=== PATIENT | male | born 1995 | race Caucasian/White ===

== ENCOUNTER 2017-07-24 18:15 | Emergency (ER) | payer BC, OTHER ==
[2017-07-24 19:19] VITALS: BP 151/90
--- NOTE | 2017-07-24 19:26 | EDM.PDOC ---
ED HPI GENERAL MEDICAL PROBLEM - General Chief Complaint: ENT Problem Stated Complaint: ABSESS TOOTH Time Seen by Provider: 07/24/17 19:10 Source of Information: Reports: Patient History Limitations: Reports: No Limitations - History of Present Illness INITIAL COMMENTS - FREE TEXT/NARRATIVE: 21 yo male here with dental pain. Was seen in a local dentist's office last Tuesday and was given amoxicillin tid and told to return in a mos. Is still taking the amox, but now is getting R sided facial swelling and his pain is increasing. Not getting relief with Aleve 2 bid. No fever. The dentist plans on doing a root canal on him at some point. Has no family doctor. Onset: Gradual Onset Date: 07/15/17 Duration: Day(s):, Getting Worse Location: Reports: Face (R upper lateral incisor) Quality: Reports: Ache Severity: Moderate Improves with: Reports: None Worsens with: Reports: Other (time) Context: Reports: Other (Bad teeth from drinking lots of soda pop) Associated Symptoms: Reports: No Other Symptoms. 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 dose) Left Upper Tooth/Teeth Pain Score (Numeric/FACES): 10 - Related Data Allergies Allergy/AdvReac Type Severity Reaction Status Date / Time No Known Allergies Allergy Verified 07/24/17 19:07 Home Meds: Home Meds *Amoxicillin 07/24/17 [History] Past Medical History Genitourinary History: Reports: Renal Calculus Musculoskeletal History: Reports: Fracture - Infectious Disease History Infectious Disease History: Reports: Chicken Pox - Past Surgical History Other Musculoskeletal Surgeries/Procedures:: R ANKLE REPAIR Social & Family History - Tobacco Use Smoking Status *Q: Unknown Ever Smoked - Caffeine Use Caffeine Use: Reports: Soda - Recreational Drug Use Recreational Drug Use: No ED ROS ENT - Review of Systems Review Of Systems: See Below Constitutional: Reports: No Symptoms HEENT: Reports: Dental Pain, Other (R side of face slightly swollen). Denies: Rhinitis, Throat Pain, Throat Swelling Respiratory: Reports: No Symptoms Cardiovascular: Reports: No Symptoms GI/Abdominal: Reports: No Symptoms Skin: Reports: No Symptoms Neurological: Reports: No Symptoms ED EXAM, ENT - Physical Exam Exam: See Below Exam Limited By: No Limitations General Appearance: Alert, WD/WN, No Apparent Distress Eye Exam: Bilateral Eye: Normal Inspection Ears: Normal External Exam, Normal Canal, Hearing Grossly Normal, Normal TMs Nose: Normal Inspection, Normal Mucousa, No Blood Mouth/Throat: Normal Lips, Normal Oropharynx, Dental Abcess, Dental Pain, Gum Swelling, Other (Extensive dental decay). No: Hoarse Voice, Lip Swelling, Lip Ulcers, Muffled Voice, Oral Ulcers, Pharyngeal Erythema, Teething, Throat Pain, Throat Swelling, Tongue Swelling Head: Atraumatic, Normocephalic, Facial Swelling (subtle R sided facial swelling.) Neck: Normal Inspection, Supple, Non-Tender, Full Range of Motion Respiratory/Chest: No Respiratory Distress, Lungs Clear, Normal Breath Sounds, No Accessory Muscle Use Cardiovascular: Regular Rate, Rhythm Extremities: Normal Inspection, Normal Range of Motion, Non-Tender, No Pedal Edema Neurological: Alert, Oriented, CN II-XII Intact, Normal Cognition, No Motor/ Sensory Deficits Psychiatric: Normal Affect, Normal Mood Skin: Warm, Dry, Intact, Normal Color, No Rash Lymphatic: No Adenopathy Course - Vital Signs Last Recorded V/S: Last Vital Signs Temp 37.0 C 07/24/17 19:17 Pulse 96 07/24/17 19:17 Resp 14 07/24/17 19:17 BP 151/90 H 07/24/17 19:17 Pulse Ox 96 07/24/17 19:17 Departure - Departure Time of Disposition: 19:30 Disposition: Home, Self-Care 01 Condition: Fair Clinical Impression: Dental caries extending into dentin, Dental abscess - Discharge Information Referrals: PCP,None [Primary Care Provider] -
== END 2017-07-24 19:40 | disposition home or self-care (01) ==
LOC: JP.ED 18:15
DX: K04.7 Periapical abscess without sinus (principal); K02.9 Dental caries, unspecified
CPT/HCPCS: 99283

== ENCOUNTER 2019-04-04 21:19 | Emergency (ER) | payer OTHER ==
[2019-04-04 21:33] VITALS: BP 144/103; PULSE 64
[2019-04-04] MEDS ORDERED: Ketorolac 60 MG/2 ML SDV IM ONE (21:49)
--- NOTE | 2019-04-04 21:55 | EDM.PDOC ---
ED HPI GENERAL MEDICAL PROBLEM - General Chief Complaint: ENT Problem Stated Complaint: TOOTH ACHE Time Seen by Provider: 04/04/19 21:40 Source of Information: Reports: Patient History Limitations: Reports: No Limitations - History of Present Illness INITIAL COMMENTS - FREE TEXT/NARRATIVE: 23-year-old male with left upper dental pain. He had a lower left molar removed today, that seems to be doing okay but is having more pain in the upper jaw radiating into the left denominational. He's taken Tylenol with Codeine and amoxicillin , he is not taking an anti-inflammatory. He is going to call the dentist tomorrow to let him know he is still having trouble. Onset: Unknown/Unsure Associated Symptoms: Reports: Headaches, Malaise. Denies: Fever/Chills, Shortness of Breath Left Upper Tooth/Teeth Pain Score (Numeric/FACES): 7 - Related Data Allergies Allergy/AdvReac Type Severity Reaction Status Date / Time No Known Allergies Allergy Verified 04/04/19 21:35 Home Meds: Home Meds Acetaminophen with Codeine [Tylenol with Codeine #3 Tablet] 1 each PO Q4H [History] Amoxicillin 1 tab PO TID 04/04/19 [History] Past Medical History Genitourinary History: Reports: Renal Calculus Musculoskeletal History: Reports: Fracture, Other (See Below) Other Musculoskeletal History: fx r ankle - Infectious Disease History Infectious Disease History: Reports: Chicken Pox - Past Surgical History Other Musculoskeletal Surgeries/Procedures:: R ANKLE REPAIR Social & Family History - Tobacco Use Smoking Status *Q: Current Every Day Smoker Years of Tobacco use: 4 Packs/Tins Daily: 1 Used Tobacco, but Quit: No Second Hand Smoke Exposure: Yes - Caffeine Use Caffeine Use: Reports: Soda - Alcohol Use Days Per Week of Alcohol Use: 3 Number of Drinks Per Day: 4 Total Drinks Per Week: 12 - Recreational Drug Use Recreational Drug Use: No ED ROS ENT - Review of Systems Review Of Systems: See Below Constitutional: Reports: Malaise. Denies: Fever, Chills HEENT: Reports: Ear Pain (Pain is radiating into the left ear) Respiratory: Denies: Shortness of Breath Cardiovascular: Denies: Chest Pain GI/Abdominal: Denies: Nausea, Vomiting Skin: Denies: Erythema Neurological: Reports: Headache ED EXAM, ENT - Physical Exam Exam: See Below Exam Limited By: No Limitations General Appearance: Alert, No Apparent Distress (Patient is uncomfortable but not distressed) Ears: Normal TMs Mouth/Throat: Other (Extraction site of the left mandibular molar looks good, advanced dental decay is present in the upper molars and they are tender to percussion) Course - Vital Signs Last Recorded V/S: Last Vital Signs Temp 95.7 F 04/04/19 21:41 Pulse 64 04/04/19 21:41 Resp 12 04/04/19 21:41 BP 144/103 H 04/04/19 21:41 Pulse Ox 98 04/04/19 21:41 - Orders/Labs/Meds Meds: Medications Discontinued Medications Generic Name Dose Route Start Last Admin Trade Name Connie PRN Reason Stop Dose Admin Ketorolac Tromethamine 60 mg 04/04/19 21:49 04/04/19 22:00 Toradol IM 04/04/19 21:50 60 mg ONETIME ONE Administration - Re-Assessments/Exams Free Text/Narrative Re-Assessment/Exam: 04/04/19 21:53 Patient already is on amoxicillin for the past 24 hours, and is taking Tylenol 3 for pain. He was given 60 mg of IM Toradol and 20 additional doses to take one every 6 hours and we'll contact the dentist in the next 24-48 hours for further evaluation. He will take the ketorolac along with the Tylenol No. 3 and amoxicillin. Departure - Departure Time of Disposition: 22:21 Disposition: Home, Self-Care 01 Condition: Good Clinical Impression: Pain due to dental caries, Dental abscess - Discharge Information Instructions: Dental Abscess Referrals: PCP,None [Primary Care Provider] - Forms: ED Department Discharge Care Plan Goals: Continue your Tylenol with Codeine for pain, continue the antibiotic and take 1 ketorolac every 6 hours for the next several days if needed. Contact your dentist if symptoms aren't improving.
== END 2019-04-04 22:21 | disposition home or self-care (01) ==
LOC: JP.ED 21:19
DX: K04.7 Periapical abscess without sinus (principal); K02.9 Dental caries, unspecified; F17.210 Nicotine dependence, cigarettes, uncomplicated
CPT/HCPCS: 96372; 99283; J1885

== ENCOUNTER 2020-03-31 13:40 | Emergency (ER) | payer SELFPAY ==
[2020-03-31 14:05] VITALS: BP 148/88; PULSE 77
[2020-03-31] MEDS ORDERED: Bacitracin Oint 1 GM U/D Packet TOP ONE (14:24)
[2020-03-31] MEDS ORDERED: Lidocaine 1% with EPINEPHrine 1:100,000 50 ML MDV INFILT ONE (14:24)
--- NOTE | 2020-03-31 14:50 | EDM.PDOC ---
ED HPI GENERAL MEDICAL PROBLEM - General Chief Complaint: Laceration Stated Complaint: CUT RIGHT KNEE Time Seen by Provider: 03/31/20 14:04 Source of Information: Reports: Patient History Limitations: Reports: No Limitations - History of Present Illness INITIAL COMMENTS - FREE TEXT/NARRATIVE: 24 yo male presents to ER with laceration to right knee. He was cutting with a sawsall and slipped bouncing blade off knee. cutting through pants. able to ambulate without difficulty. up to date on tetanus Right Knee Pain Score (Numeric/FACES): 2 - Related Data Allergies Allergy/AdvReac Type Severity Reaction Status Date / Time No Known Allergies Allergy Verified 03/31/20 14:11 Home Meds: Home Meds NK [No Known Home Meds] 03/31/20 [History] Past Medical History Genitourinary History: Reports: Renal Calculus Musculoskeletal History: Reports: Fracture, Other (See Below) Other Musculoskeletal History: fx r ankle - Infectious Disease History Infectious Disease History: Reports: Chicken Pox - Past Surgical History Other Musculoskeletal Surgeries/Procedures:: R ANKLE REPAIR Social & Family History - Tobacco Use Smoking Status *Q: Current Every Day Smoker Years of Tobacco use: 6 Packs/Tins Daily: 1 Used Tobacco, but Quit: No Second Hand Smoke Exposure: Yes - Caffeine Use Caffeine Use: Reports: Soda - Alcohol Use Days Per Week of Alcohol Use: 2 Number of Drinks Per Day: 3 Total Drinks Per Week: 6 - Recreational Drug Use Recreational Drug Use: No ED ROS GENERAL - Review of Systems Review Of Systems: See Below Constitutional: Denies: Fever, Chills Respiratory: Denies: Shortness of Breath, Wheezing Cardiovascular: Denies: Chest Pain ED EXAM, SKIN/RASH Exam: See Below Text/Narrative:: exam limited to right knee General Appearance: Alert, WD/WN, No Apparent Distress Respiratory/Chest: No Respiratory Distress Skin: Warm, Dry, Intact, Wound/Incision Location, Skin: Lower Extremity, Right Characteristics: Other (1.75 cm laceration at knee, CMS surrounding injury intact.) ED SKIN PROCEDURES - Laceration/Wound Repair Right Knee Appearance: Superficial, Subcutaneous Distal NVT: Neuro & Vascular Intact, No Tendon Injury Anesthetic Type: Local Local Anesthesia - Lidocaine (Xylocaine): 1% with EPI Local Anesthetic Volume: 4cc Skin Prep: Chlorhexidine (Hibiciens), Saline, Sterile Drape Saline Irrigation (cc's): 100 Exploration/Debridement/Repair: Wound Explored, In a Bloodless Field, Explored to Base, Minimal Debridement, No Foreign Material Found Closed with: Sutures Lac/Wound length In cm: 1.8 Suture Size: 3-0 Suture Type: Nylon, Interrupted, Simple Sterile Dressing Applied: Nurse Tetanus Status Addressed: Yes Complications: No Course - Vital Signs Last Recorded V/S: Last Vital Signs Temp 35.6 C L 03/31/20 14:18 Pulse 77 03/31/20 14:18 Resp 15 03/31/20 14:18 BP 148/88 H 03/31/20 14:18 Pulse Ox 95 03/31/20 14:18 - Orders/Labs/Meds Meds: Medications Discontinued Medications Generic Name Dose Route Start Last Admin Trade Name Connie PRN Reason Stop Dose Admin Bacitracin 1 dose 03/31/20 14:24 03/31/20 14:35 Bacitracin Oint 1 Gm TOP 03/31/20 14:25 1 dose ONETIME ONE Administration Lidocaine/Epinephrine 5 ml 03/31/20 14:24 03/31/20 14:35 Xylocaine 1% With Epinephrine 1:100,000 INFILT 03/31/20 14:25 5 ml ONETIME ONE Administration Departure - Departure Time of Disposition: 14:48 Disposition: Home, Self-Care 01 Condition: Good Clinical Impression: Laceration of knee Qualifiers: Encounter type: initial encounter Laterality: right Qualified Code(s): S81.011A - Laceration without foreign body, right knee, initial encounter - Discharge Information *PRESCRIPTION DRUG MONITORING PROGRAM REVIEWED*: Not Applicable *COPY OF PRESCRIPTION DRUG MONITORING REPORT IN PATIENT ADAM: Not Applicable Instructions: Sutured Wound Care, [id number] Referrals: PCP,None [Primary Care Provider] - Forms: ED Department Discharge Additional Instructions: sutures out in 8-10 days ice as needed for pain and swelling control keep dry and clean wash with warm soapy water and pat dry do not soak - no swimming or baths until sutures out observe for signs of infection - fire engine red, increase in pain, purulent drainage Sepsis Event Note (ED) - Evaluation Sepsis Screening Result: No Definite Risk - Focused Exam Vital Signs: Vital Signs Temp Pulse Resp BP Pulse Ox 03/31/20 14:18 35.6 C L 77 15 148/88 H 95 03/31/20 14:04 35.6 C L 77 15 148/88 H 95
== END 2020-03-31 15:00 | disposition home or self-care (01) ==
LOC: JP.ED 13:40
DX: S81.011A Laceration without foreign body, right knee, initial encounter (principal); F17.210 Nicotine dependence, cigarettes, uncomplicated; W26.9XXA Contact with unspecified sharp object(s), initial encounter
CPT/HCPCS: 12001; 99282

== ENCOUNTER 2020-04-08 20:14 | Emergency (ER) | payer SELFPAY ==
[2020-04-08 20:39] VITALS: BP 185/113; PULSE 79
--- NOTE | 2020-04-08 20:39 | EDM.PDOC ---
ED HPI GENERAL MEDICAL PROBLEM - General Chief Complaint: ENT Problem Stated Complaint: TOOTH PAIN Time Seen by Provider: 04/08/20 20:20 Source of Information: Reports: Patient, Old Records, RN History Limitations: Reports: No Limitations - History of Present Illness INITIAL COMMENTS - FREE TEXT/NARRATIVE: 24 yo male here with dental pain. He says a part of his tooth broke off 2 days ago and his pain has been progressive since. Has not tried to make a dental appt because he does not have dental insurance. 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) Left Upper Jaw Pain Score (Numeric/FACES): 8 - Related Data Allergies Allergy/AdvReac Type Severity Reaction Status Date / Time No Known Allergies Allergy Verified 04/08/20 20:23 Home Meds: Home Meds NK [No Known Home Meds] 03/31/20 [History] Past Medical History Genitourinary History: Reports: Renal Calculus Musculoskeletal History: Reports: Fracture, Other (See Below) Other Musculoskeletal History: fx r ankle - Infectious Disease History Infectious Disease History: Reports: Chicken Pox - Past Surgical History Other Musculoskeletal Surgeries/Procedures:: R ANKLE REPAIR Social & Family History - Tobacco Use Smoking Status *Q: Current Every Day Smoker Years of Tobacco use: 5 Packs/Tins Daily: 1 - Caffeine Use Caffeine Use: Reports: Soda - Alcohol Use Days Per Week of Alcohol Use: 1 Number of Drinks Per Day: 4 Total Drinks Per Week: 4 - Recreational Drug Use Recreational Drug Use: No ED ROS ENT - Review of Systems Review Of Systems: See Below Constitutional: Reports: No Symptoms HEENT: Reports: Dental Pain, Other (no facial swelling) Respiratory: Reports: No Symptoms Cardiovascular: Reports: No Symptoms ED EXAM, ENT - Physical Exam Exam: See Below Exam Limited By: No Limitations General Appearance: Alert, WD/WN, Mild Distress Eye Exam: Bilateral Eye: Normal Inspection Ears: Normal External Exam, Normal Canal, Hearing Grossly Normal, Normal TMs Nose: Normal Inspection, No Blood Mouth/Throat: Normal Lips, Normal Oropharynx, Dental Pain, Dental Tenderness, Dental Trauma (front 1/3 of his maxillary premolar on the left is broken off due to decay.). No: Normal Teeth Head: Atraumatic, Normocephalic. No: Facial Swelling, Facial Tenderness Neck: Normal Inspection. No: Lymphadenopathy (R), Lymphadenopathy (L) Neurological: Alert, Oriented, CN II-XII Intact, Normal Cognition, No Motor/Sensory Deficits Psychiatric: Normal Affect, Normal Mood Skin: Warm, Dry, Intact, Normal Color, No Rash Course - Vital Signs Last Recorded V/S: Last Vital Signs Temp 36.8 C 04/08/20 20:25 Pulse 79 04/08/20 20:25 Resp 14 04/08/20 20:25 BP 185/113 H 04/08/20 20:25 Pulse Ox 99 04/08/20 20:25 Departure - Departure Time of Disposition: 20:37 Disposition: Home, Self-Care 01 Condition: Fair Clinical Impression: Dental infection - Discharge Information *PRESCRIPTION DRUG MONITORING PROGRAM REVIEWED*: No *COPY OF PRESCRIPTION DRUG MONITORING REPORT IN PATIENT ADAM: No Instructions: Dental Abscess, [id number] Referrals: PCP,None [Primary Care Provider] - Additional Instructions: Take Penicillin as directed until gone. Take ibuprofen 600 mg every 6 hrs with food for pain relief. Add acetaminophen OR Percocet for added relief. Seek dental care tomorrow. See your family doctor as needed. Sepsis Event Note (ED) - Evaluation Sepsis Screening Result: No Definite Risk - Focused Exam Vital Signs: Vital Signs Temp Pulse Resp BP Pulse Ox 04/08/20 20:25 36.8 C 79 14 185/113 H 99 04/08/20 20:21 36.8 C 79 14 185/113 H 99
== END 2020-04-08 20:43 | disposition home or self-care (01) ==
LOC: JP.ED 20:14
DX: K04.7 Periapical abscess without sinus (principal); K03.81 Cracked tooth; K02.9 Dental caries, unspecified; F17.210 Nicotine dependence, cigarettes, uncomplicated
CPT/HCPCS: 99282

== ENCOUNTER 2020-04-09 19:22 | Observation (INO) | payer SELFPAY ==
[2020-04-09] MEDS ORDERED: methylPREDNISolone Sodium Succinate 125 MG/2 ML SDV IVPUSH ONE (20:22)
[2020-04-09] MEDS ORDERED: Sodium Chloride 0.9% 1,000 ML IV SCH ×2 (20:30→20:55)
--- NOTE | 2020-04-09 20:38 | EDM.PDOC ---
ED HPI GENERAL MEDICAL PROBLEM - General Chief Complaint: ENT Problem Stated Complaint: TOOTH PAIN Time Seen by Provider: 04/09/20 19:41 Source of Information: Reports: Patient, Family (Girlfriend) History Limitations: Reports: No Limitations - History of Present Illness Onset: Gradual Duration: Day(s):, Getting Worse Location: Reports: Face, Neck Quality: Reports: Ache, Dull, Pressure Severity: Moderate Improves with: Reports: None Worsens with: Reports: None Context: Reports: Other (dental abscess) Associated Symptoms: Reports: Fever/Chills (reports temps of 102 at home.), Loss of Appetite Treatments [employer]: Reports: Acetaminophen, NSAIDS, Other Medication(s) (Augmentin) Left Upper Jaw Pain Score (Numeric/FACES): 10 - Related Data Allergies Allergy/AdvReac Type Severity Reaction Status Date / Time No Known Allergies Allergy Verified 04/09/20 19:58 Home Meds: Home Meds NK [No Known Home Meds] 03/31/20 [History] Past Medical History Genitourinary History: Reports: Renal Calculus Musculoskeletal History: Reports: Fracture, Other (See Below) Other Musculoskeletal History: fx r ankle - Infectious Disease History Infectious Disease History: Reports: Chicken Pox - Past Surgical History Other Musculoskeletal Surgeries/Procedures:: R ANKLE REPAIR Social & Family History - Family History Family Medical History: Noncontributory - Tobacco Use Smoking Status *Q: Current Every Day Smoker Years of Tobacco use: 5 Packs/Tins Daily: 1 - Caffeine Use Caffeine Use: Reports: Soda - Alcohol Use Days Per Week of Alcohol Use: 1 Number of Drinks Per Day: 5 Total Drinks Per Week: 5 - Recreational Drug Use Recreational Drug Use: No - Living Situation & Occupation Living situation: Reports: with Significant Other (lives with Girlfriend Lizet in [place], [place].) Occupation: Employed ED ROS ENT - Review of Systems Review Of Systems: See Below Constitutional: Reports: Fever, Other (facial pain and difficulty swallowing) HEENT: Reports: Dental Pain, Throat Pain, Throat Swelling Respiratory: Reports: No Symptoms Cardiovascular: Reports: No Symptoms Endocrine: Reports: No Symptoms GI/Abdominal: Reports: No Symptoms : Reports: No Symptoms Musculoskeletal: Reports: Neck Pain (left sided facial edema, intermittent pain with rotation of neck), Muscle Pain (neck) Skin: Reports: Erythema (left face and neck) Neurological: Reports: Headache Psychiatric: Reports: No Symptoms Hematologic/Lymphatic: Reports: No Symptoms Immunologic: Reports: No Symptoms ED EXAM, ENT - Physical Exam Exam: See Below Exam Limited By: No Limitations General Appearance: Alert, WD/WN, Anxious, Other (left facial edema noted from eye to upper neck, redness. left lip edema) Eye Exam: Bilateral Eye: PERRL Ears: Normal External Exam, Normal Canal, Hearing Grossly Normal, Normal TMs Nose: Normal Inspection, Normal Mucousa Mouth/Throat: Dental Abcess (left upper gums with edema, severe dental decay noted'), Dental Pain (mult teeth with decay to gum line, gums with inflammation.) Head: Facial Swelling (left from left eye to upper neck), Facial Tenderness (left), Sinus Tenderness (left) Neck: Supple, Lymphadenopathy (L) Respiratory/Chest: No Respiratory Distress, Lungs Clear, Normal Breath Sounds, No Accessory Muscle Use, Chest Non-Tender Cardiovascular: Normal Peripheral Pulses, Regular Rate, Rhythm, No Edema, No Gallop, No JVD, No Murmur, No Rub GI/Abdominal: Normal Bowel Sounds, Soft, Non-Tender, No Organomegaly, No Distention, No Abnormal Bruit, No Mass (Male) Exam: Deferred Rectal (Males) Exam: Deferred Back: Normal Inspection, Full Range of Motion Extremities: Normal Inspection, Normal Range of Motion, Non-Tender, No Pedal Edema, Normal Capillary Refill Neurological: Alert, Oriented, CN II-XII Intact, Normal Cognition, Normal Gait, Normal Reflexes, No Motor/Sensory Deficits Psychiatric: Normal Affect, Normal Mood Skin: Erythema (left face and upper neck), Increased Warmth (left face and upper neck), Pallor, Other (left knee with resolved laceration, has sutures present for 10 days.) Lymphatic: Adenopathy (left neck) Course - Vital Signs Last Recorded V/S: Last Vital Signs Temp 36.2 C 04/09/20 20:12 Pulse 109 H 04/09/20 20:12 Resp 16 04/09/20 20:12 BP 154/98 H 04/09/20 20:12 Pulse Ox 98 04/09/20 20:12 - Orders/Labs/Meds Orders: Active Orders 24 hr Category Date Time Status Patient Status Manage Transfer [TRANSFER] Routine ADT 04/09/20 20:25 Active CBC WITH AUTO DIFF [HEME] Urgent Lab 04/09/20 20:17 Ordered COMPREHENSIVE METABOLIC PN,CMP [CHEM] Urgent Lab 04/09/20 20:17 Ordered CULTURE BLOOD [BC] Urgent Lab 04/09/20 20:19 Ordered CULTURE BLOOD [BC] Urgent Lab 04/09/20 20:19 Ordered LACTIC ACID [CHEM] Stat Lab 04/09/20 20:17 Ordered Clindamycin Phosphate [Cleocin] 900 mg Med 04/09/20 20:30 Active Sodium Chloride 0.9% [Normal Saline] 100 ml IV Q8H Sodium Chloride 0.9% [Normal Saline] 1,000 ml Med 04/09/20 20:30 Active IV ASDIRECTED Blood Culture x2 Reflex Set [OM.PC] Urgent Oth 04/09/20 20:17 Ordered Resuscitation Status Routine Resus Stat 04/09/20 20:29 Ordered Medication Orders Sodium Chloride (Normal Saline) 1,000 mls @ 999 mls/hr IV ASDIRECTED TIA Clindamycin Phosphate 900 mg/ (Sodium Chloride) 106 mls @ 200 mls/hr IV Q8H TIA Meds: Medications Generic Name Dose Route Start Last Admin Trade Name Freq PRN Reason Stop Dose Admin Sodium Chloride 1,000 mls @ 999 mls/hr 04/09/20 20:30 Normal Saline IV ASDIRECTED TIA Clindamycin Phosphate 900 mg/ 106 mls @ 200 mls/hr 04/09/20 20:30 Sodium Chloride IV Q8H TIA Discontinued Medications Generic Name Dose Route Start Last Admin Trade Name Freq PRN Reason Stop Dose Admin Methylprednisolone Sodium Succinate 125 mg 04/09/20 20:22 Solu-Medrol IVPUSH 04/09/20 20:23 ONETIME ONE - Re-Assessments/Exams Free Text/Narrative Re-Assessment/Exam: 04/09/20 20:40 will start IV fluids and antibiotics admit Observation for facial cellulitis evaluate for sepsis. labs pending left knee - sutures removal Cornelio and SO agree with plan of care. 04/09/20 20:43 Departure - Departure Time of Disposition: 20:42 Disposition: Refer to Observation Condition: Good Clinical Impression: Dental caries extending into dentin, Dental abscess, Cellulitis and abscess of face - Discharge Information *PRESCRIPTION DRUG MONITORING PROGRAM REVIEWED*: Not Applicable *COPY OF PRESCRIPTION DRUG MONITORING REPORT IN PATIENT ADAM: Not Applicable Instructions: Cellulitis, Adult, [id number] Referrals: PCP,None [Primary Care Provider] - Care Plan Goals: admit Observation status to [facility] Sepsis Event Note (ED) - Evaluation Sepsis Screening Result: Possible Severe Sepsis Risk - Focused Exam Vital Signs: Vital Signs Temp Pulse Resp BP Pulse Ox 04/09/20 20:12 36.2 C 109 H 16 154/98 H 98 04/09/20 19:58 36.2 C 109 H 16 154/98 H 98 - Problem List & Annotations (1) Cellulitis and abscess of face SNOMED Code(s): 764510853 Code(s): L03.211 - CELLULITIS OF FACE; L02.01 - CUTANEOUS ABSCESS OF FACE Status: Acute Priority: High Current Visit: Yes - Problem List Review Problem List Initiated/Reviewed/Updated: Yes - My Orders Last 24 Hours: My Active Orders 04/09/20 20:17 CBC WITH AUTO DIFF [HEME] Urgent COMPREHENSIVE METABOLIC PN,CMP [CHEM] Urgent LACTIC ACID [CHEM] Stat Blood Culture x2 Reflex Set [OM.PC] Urgent 04/09/20 20:19 CULTURE BLOOD [BC] Urgent CULTURE BLOOD [BC] Urgent 04/09/20 20:25 Patient Status Manage Transfer [TRANSFER] Routine 04/09/20 20:29 Resuscitation Status Routine 04/09/20 20:30 Clindamycin Phosphate [Cleocin] 900 mg Sodium Chloride 0.9% [Normal Saline] 100 ml IV Q8H Sodium Chloride 0.9% [Normal Saline] 1,000 ml IV ASDIRECTED - Assessment/Plan Last 24 Hours: My Active Orders 04/09/20 20:17 CBC WITH AUTO DIFF [HEME] Urgent COMPREHENSIVE METABOLIC PN,CMP [CHEM] Urgent LACTIC ACID [CHEM] Stat Blood Culture x2 Reflex Set [OM.PC] Urgent 04/09/20 20:19 CULTURE BLOOD [BC] Urgent CULTURE BLOOD [BC] Urgent 04/09/20 20:25 Patient Status Manage Transfer [TRANSFER] Routine 04/09/20 20:29 Resuscitation Status Routine 04/09/20 20:30 Clindamycin Phosphate [Cleocin] 900 mg Sodium Chloride 0.9% [Normal Saline] 100 ml IV Q8H Sodium Chloride 0.9% [Normal Saline] 1,000 ml IV ASDIRECTED Plan: admit to Observation status to [facility] [place]. Unit
[2020-04-09] MEDS ORDERED: Ondansetron 4 MG Tab.DIS PO PRN (20:55)
[2020-04-09] MEDS ORDERED: Docusate Sodium 100 MG Cap PO PRN (20:55)
[2020-04-09] MEDS ORDERED: Sodium Chloride 0.9% 1,000 ML IV ONE (20:55)
[2020-04-09] MEDS ORDERED: Acetaminophen/HYDROcodone 325-5 MG Tab PO PRN (20:55)
[2020-04-09] MEDS ORDERED: Acetaminophen 325 MG Tab PO PRN (20:55)
[2020-04-09] MEDS ORDERED: Enoxaparin 40 MG/0.4 ML Syringe SUBCUT SCH (20:55)
[2020-04-09] MEDS ORDERED: Ondansetron 4 MG/2 ML SDV IV PRN (20:55)
[2020-04-09] MEDS ORDERED: Morphine 2 MG/ML SYRINGE IVPUSH PRN (20:55)
[2020-04-09] MEDS ORDERED: Levofloxacin/Dextrose 5%-Water 750 MG in Premix Bag 1 BAG IV SCH (21:00)
[2020-04-09] MEDS: Clindamycin Phosphate 900 MG in Sodium Chloride 0.9% 100 ML IV SCH (21:20)
[2020-04-09] MEDS ORDERED: Iopamidol 612 MG/ML 100 ML Bottle IV SCH (21:45)
[2020-04-09] MEDS ORDERED: Sodium Chloride 0.9% 80 ML IV SCH (21:45)
[2020-04-09] MEDS ORDERED: diphenhydrAMINE 25 MG Cap PO PRN (22:02)
--- NOTE | 2020-04-09 22:33 | CRLCT ---
INDICATION: Facial cellulitis. Severe dental disease. Sepsis COMPARISON: None available TECHNIQUE: CT examination of the neck is performed using spiral technique during the uneventful intravenous administration of 100 cc of Isovue-300. 3 mm thick axial sections were made along with coronal and sagittal sections. Please note that all CT scans at this facility use dose modulation, iterative reconstruction, and/or weight-based dosing when appropriate to reduce radiation dose to as low as reasonably achievable. FINDINGS: There is moderate cellulitis of the left inferior maxillary region associated with mild thickening of the left platysma muscle. There is no sign of any associated abscess. There is no sign of any associated maxillary periapical abscess. There is mild lucency around the roots of the left mandibular 2nd molar, tooth 18, where there is prominent destruction of the crown of the tooth. This is a small periapical abscess. There is minimal lucency around the proximal root of the right 1st mandibular molar, tooth 30, a small periapical abscess. There is prominent carious destruction of the right maxillary 2nd premolar and 1st molar, teeth 4 and 3, respectively. There is moderate carious destruction of the left maxillary incisor and 1st premolar, teeth 11 and 12. There is additional destruction of the anterior crown of the left 1st maxillary molar, tooth 14. There are bilateral impacted maxillary wisdom teeth, teeth 17 and 32. There is moderate left superior jugular chain lymphadenopathy, level 2, with a dominant lymph node with a short-axis diameter of 1.8 centimeters. There is mild left submandibular lymphadenopathy, level 1B, with a lymph node with short axis diameter of 1.3 centimeters. There is mild right superior jugular chain lymphadenopathy, level 2, with short axis diameter of 1.1 centimeters. This lymphadenopathy is probably reactive. The airway structures are normal in appearance. There is no sign of cervical mass or adenopathy on today`s study. The salivary glands are normal in appearance. The visualized posterior fossa, mastoids, skull base, and orbits are normal in appearance. There is moderate left maxillary mucosal thickening from chronic sinusitis. There is mild mucosal thickening in the left anterior ethmoids from additional mild chronic sinusitis. The rest of the paranasal sinuses are clear. The great vessels are unremarkable. The thyroid gland is normal in appearance. The visualized upper chest is clear. The visualized upper mediastinum is normal in appearance. The osseous structures are unremarkable. IMPRESSION: Moderate left inferior maxillary cellulitis with no sign of any abscess. No sign of any left maxillary periapical abscesses associated with dental disease as described above. Small bilateral periapical abscesses associated with mandibular teeth 18 and 30 as described above. There is no sign of extension of these abscesses into the subperiosteal space. Moderate left and mild right superior jugular chain lymphadenopathy and mild left submandibular lymphadenopathy, probably reactive. Moderate chronic left maxillary sinusitis. Please note that all CT scans at this facility use dose modulation, iterative reconstruction, and/or weight-based dosing when appropriate to reduce radiation dose to as low as reasonably achievable. Dictated by Delvin Rees MD @ Apr 09 2020 10:18PM Signed by Dr. Delvin Rees @ Apr 09 2020 10:33PM
--- NOTE | 2020-04-09 23:04 | PCM.HP.2 ---
H&P History of Present Illness - General Date of Service: 04/09/20 Admit Problem/Dx: Admission Diagnosis/Problem Admission Diagnosis/Problem Cellulitis of face Source of Information: Patient, Family (ZAFAR Hinds) History Limitations: Reports: No Limitations - History of Present Illness Initial Comments - Free Text/Narative: chief complaint: cellulitis This is a 24 year old male present to ER with his SO, concerns of worsening dental pain and infection. He reports was seen in ER yesterday and in Dental Clinic today. Given Augmentin and Alba. He has taking Augmentin and last Alba this afternoon. Reports fevers of 102 at home, lack of eating or drinking. Reports face is red, warm, swollen with painful swallowing. Duration of Symptoms: Reports: Day(s): Location: Reports: Face, Neck Quality: Reports: Ache, Burning, Pressure Severity: Severe Improves with: Reports: None Worsens with: Reports: Eating, Movement Context: Reports: Other (dental infection, multi cavities) Left Upper Jaw Pain Score (Numeric/FACES): 10 - Related Data Allergies/Adverse Reactions: Allergies Allergy/AdvReac Type Severity Reaction Status Date / Time No Known Allergies Allergy Verified 04/09/20 19:58 Home Medications: Home Meds NK [No Known Home Meds] 03/31/20 [History] Past Medical History Genitourinary History: Reports: Renal Calculus Musculoskeletal History: Reports: Fracture, Other (See Below) Other Musculoskeletal History: fx r ankle - Infectious Disease History Infectious Disease History: Reports: Chicken Pox - Past Surgical History Other Musculoskeletal Surgeries/Procedures:: R ANKLE REPAIR Social & Family History - Family History Family Medical History: Noncontributory - Tobacco Use Smoking Status *Q: Current Every Day Smoker Years of Tobacco use: 5 Packs/Tins Daily: 1 Used Tobacco, but Quit: No Second Hand Smoke Exposure: No - Caffeine Use Caffeine Use: Reports: Soda - Alcohol Use Days Per Week of Alcohol Use: 1 Number of Drinks Per Day: 5 Total Drinks Per Week: 5 - Recreational Drug Use Recreational Drug Use: No - Living Situation & Occupation Living situation: Reports: with Significant Other (lives with Girlfriend Lizet in [place], [place].) Occupation: Employed H[employer]P Review of Systems - Review of Systems: Review Of Systems: See Below General: Reports: Fever (fever 102 at Hospital 101.8), Malaise HEENT: Reports: Other (painfuyl swallowing, left sided facial swelling from eyes to upper neck. ) Pulmonary: Reports: Other (smokes one pack tobacco daily) Cardiovascular: Reports: No Symptoms Gastrointestinal: Reports: No Symptoms Genitourinary: Reports: No Symptoms Musculoskeletal: Reports: Muscle Pain (jaw pain) Skin: Reports: Pallor, Erythema (left sided facial erythema, warm to touch, marked edema of cheek, upper lip) Psychiatric: Reports: No Symptoms Neurological: Reports: No Symptoms Hematologic/Lymphatic: Reports: No Symptoms Immunologic: Reports: No Symptoms Exam - Exam Exam: See Below - Vital Signs Vital Signs: Last Vital Signs Temp 38.6 C H 04/09/20 21:00 Pulse 96 04/09/20 21:00 Resp 18 04/09/20 21:00 BP 144/85 H 04/09/20 21:24 Pulse Ox 98 04/09/20 21:00 Weight: 102.058 kg - Exam Quality Assessment: DVT Prophylaxis General: Alert, Oriented, Cooperative, Mild Distress HEENT: PERRLA, EOMI, Hearing Intact, Mucosa Moist & [place], Other (moderate left facial edema, redness, skin warm to touch, skin tight. upper lip swollen. multi severe cavities . gum with inflammation) Neck: Supple, Trachea Midline, Full Range of Motion, Lymphadenopathy (left ) Lungs: Clear to Auscultation, Normal Respiratory Effort Cardiovascular: Regular Rate, Regular Rhythm, Normal S1, Normal S2. No: Systolic Murmur, Diastolic Murmur GI/Abdominal Exam: Normal Bowel Sounds, Soft, Non-Tender, No Organomegaly, No Distention (Male) Exam: Deferred Rectal (Males) Exam: Deferred Back Exam: Normal Inspection, Full Range of Motion Extremities: Normal Inspection, Normal Range of Motion, Non-Tender, No Pedal Edema, Normal Capillary Refill Peripheral Pulses: 2+: Radial (L), Radial (R) Skin: Warm, Other (left facial edema, redness, painful, warm to touch. ) Neurological: Reflexes Equal Bilateral, Strength Equal Bilateral Neuro Extensive - Mental Status: Alert, Oriented x3, Normal Mood/Affect, Normal Cognition, Memory Intact Neuro Extensive - Motor, Sensory, Reflexes: CN II-XII Intact, Normal Gait, Normal Reflexes Psychiatric: Alert, Normal Affect, Normal Mood - Patient Data Lab Results Last 24 hrs: Laboratory Results - last 24 hr 04/09/20 04/09/20 04/09/20 Range/Units 20:45 20:45 20:45 WBC 15.8 H (4.5-11.0) K/uL RBC 5.72 (4.30-5.90) M/uL Hgb 16.9 H (12.0-15.0) g/dL Hct 51.1 (40.0-54.0) % MCV 89 (80-98) fL MCH 30 (27-31) pg MCHC 33 (32-36) % Plt Count 423 H (150-400) K/uL Neut % (Auto) 74 H (36-66) % Lymph % (Auto) 14 L (24-44) % [place] % (Auto) 11 H (2-6) % Eos % (Auto) 0 L (2-4) % Baso % (Auto) 0 (0-1) % Sodium 136 L (140-148) mmol/L Potassium 4.1 (3.6-5.2) mmol/L Chloride 98 L (100-108) mmol/L Carbon Dioxide 29 (21-32) mmol/L Anion Gap 13.1 (5.0-14.0) mmol/L BUN 7 (7-18) mg/dL Creatinine 1.1 (0.8-1.3) mg/dL Est Cr Clr Drug Dosing 106.92 mL/min Estimated GFR (MDRD) > 60 (>60) Glucose 112 H (74-106) mg/dL Lactic Acid 1.8 (0.4-2.0) mmol/L Calcium 9.5 (8.5-10.1) mg/dL Total Bilirubin 0.7 (0.2-1.0) mg/dL AST 30 (15-37) U/L ALT 50 (12-78) U/L Alkaline Phosphatase 73 (46-116) U/L C-Reactive Protein (0.0-0.3) mg/dL Total Protein 8.9 H (6.4-8.2) g/dL Albumin 4.1 (3.4-5.0) g/dL Globulin 4.8 H (2.3-3.5) g/dL Albumin/Globulin Ratio 0.9 L (1.2-2.2) 04/09/20 Range/Units 20:59 WBC (4.5-11.0) K/uL RBC (4.30-5.90) M/uL Hgb (12.0-15.0) g/dL Hct (40.0-54.0) % MCV (80-98) fL MCH (27-31) pg MCHC (32-36) % Plt Count (150-400) K/uL Neut % (Auto) (36-66) % Lymph % (Auto) (24-44) % [place] % (Auto) (2-6) % Eos % (Auto) (2-4) % Baso % (Auto) (0-1) % Sodium (140-148) mmol/L Potassium (3.6-5.2) mmol/L Chloride (100-108) mmol/L Carbon Dioxide (21-32) mmol/L Anion Gap (5.0-14.0) mmol/L BUN (7-18) mg/dL Creatinine (0.8-1.3) mg/dL Est Cr Clr Drug Dosing mL/min Estimated GFR (MDRD) (>60) Glucose (74-106) mg/dL Lactic Acid (0.4-2.0) mmol/L Calcium (8.5-10.1) mg/dL Total Bilirubin (0.2-1.0) mg/dL AST (15-37) U/L ALT (12-78) U/L Alkaline Phosphatase (46-116) U/L C-Reactive Protein 8.03 H (0.0-0.3) mg/dL Total Protein (6.4-8.2) g/dL Albumin (3.4-5.0) g/dL Globulin (2.3-3.5) g/dL Albumin/Globulin Ratio (1.2-2.2) Result Diagrams: 04/09/20 20:45 04/09/20 20:45 Sepsis Event Note - Evaluation Sepsis Screening Result: Sepsis Risk - Focused Exam Vital Signs: Vital Signs Temp Pulse Resp BP Pulse Ox 04/09/20 21:24 144/85 H 04/09/20 21:00 38.6 C H 96 18 162/102 H 98 04/09/20 20:12 36.2 C 109 H 16 154/98 H 98 04/09/20 19:58 36.2 C 109 H 16 154/98 H 98 - Problem List (1) Cellulitis and abscess of face SNOMED Code(s): 063685427 ICD Code: L03.211 - CELLULITIS OF FACE; L02.01 - CUTANEOUS ABSCESS OF FACE Status: Acute Priority: High Current Visit: Yes (2) Tobacco dependence SNOMED Code(s): 94905462 ICD Code: F17.200 - NICOTINE DEPENDENCE, UNSPECIFIED, UNCOMPLICATED Status: Acute Priority: High Current Visit: Yes Problem List Initiated/Reviewed/Updated: Yes Orders Last 24hrs: Active Orders 24 hr Category Date Time Status Intake and Output [RC] QSHIFT Care 04/09/20 20:55 Active Notify Provider Vital Signs [RC] ASDIRECTED Care 04/09/20 20:55 Active Oxygen Therapy [RC] PRN Care 04/09/20 20:55 Active Pulse Oximetry [RC] PRN Care 04/09/20 20:55 Active Up ad Melodie [RC] ASDIRECTED Care 04/09/20 20:55 Active VTE/DVT Education [RC] Per Unit Routine Care 04/09/20 20:55 Active Vital Signs [RC] Q4H Care 04/09/20 20:55 Active Vital Signs [RC] Q4HR Care 04/09/20 20:55 Active Mechanical Soft Diet [DIET] Diet 04/09/20 Breakfast Active BASIC METABOLIC PANEL,BMP [CHEM] AM Lab 04/10/20 05:11 Ordered CBC WITH AUTO DIFF [HEME] AM Lab 04/10/20 05:11 Ordered CULTURE BLOOD [BC] Urgent Lab 04/09/20 20:45 Received CULTURE BLOOD [BC] Urgent Lab 04/09/20 20:52 Received Acetaminophen [TylenoL] Med 04/09/20 20:55 Active 650 mg PO Q4H PRN Acetaminophen/HYDROcodone [Alba 325-5 MG] Med 04/09/20 20:55 Active 1 tab PO Q4H PRN Clindamycin Phosphate [Cleocin] 900 mg Med 04/09/20 20:30 Active Sodium Chloride 0.9% [Normal Saline] 100 ml IV Q8H Docusate Sodium [Colace] Med 04/09/20 20:55 Active 100 mg PO BID PRN Enoxaparin [Lovenox] Med 04/09/20 20:55 Active 40 mg SUBCUT DAILY Iopamidol [Isovue-300 (61%)] Med 04/09/20 21:45 Active 100 ml IV . DIRECTED Levofloxacin/Dextrose 5%-Water [Levaquin in D5W 750 MG/ Med 04/09/20 21:00 Active 150 ML] 750 mg Premix Bag 1 bag IV Q24H Morphine Med 04/09/20 20:55 Active 2 mg IVPUSH Q2H PRN Nicotine [Habitrol] Med 04/10/20 09:00 Active 21 mg TRDERM DAILY Ondansetron [Zofran ODT] Med 04/09/20 20:55 Active 4 mg PO Q6H PRN Ondansetron [Zofran] Med 04/09/20 20:55 Active 4 mg IV Q4H PRN Sodium Chloride 0.9% [Normal Saline] 1,000 ml Med 04/09/20 20:55 Active IV ASDIRECTED Sodium Chloride 0.9% [Normal Saline] 80 ml Med 04/09/20 21:45 Active IV ASDIRECTED diphenhydrAMINE [Benadryl] Med 04/09/20 22:02 Active 25 mg PO BEDTIME PRN Blood Culture x2 Reflex Set [OM.PC] Urgent Oth 04/09/20 20:17 Ordered Blood Culture x2 Reflex Set [OM.PC] Urgent Oth 04/09/20 20:55 Ordered Resuscitation Status Routine Resus Stat 04/09/20 20:29 Ordered Medication Orders Acetaminophen (Tylenol) 650 mg PO Q4H PRN PRN Reason: Pain (Mild 1-3)/fever Last Admin: 04/09/20 21:49 Dose: 325 mg Documented by: MARY Hydrocodone Bitart/Acetaminophen (Alba 325-5 Mg) 1 tab PO Q4H PRN PRN Reason: Pain (moderate 4-6) Last Admin: 04/09/20 21:21 Dose: 1 tab Documented by: MILDRED Diphenhydramine HCl (Benadryl) 25 mg PO BEDTIME PRN PRN Reason: Insomnia Docusate Sodium (Colace) 100 mg PO BID PRN PRN Reason: Constipation Enoxaparin Sodium (Lovenox) 40 mg SUBCUT DAILY TIA Last Admin: 04/09/20 21:21 Dose: 40 mg Documented by: MILDRED Clindamycin Phosphate 900 mg/ (Sodium Chloride) 106 mls @ 200 mls/hr IV Q8H [facility] Last Admin: 04/09/20 21:20 Dose: 200 mls/hr Documented by: MILDRED Sodium Chloride (Normal Saline) 1,000 mls @ 125 mls/hr IV ASDIRECTED [facility] Last Admin: 04/09/20 22:49 Dose: 125 mls/hr Documented by: MARY Levofloxacin/Dextrose 750 mg/ (Premix) 150 mls @ 100 mls/hr IV Q24H [facility] Last Admin: 04/09/20 22:48 Dose: 100 mls/hr Documented by: MARY Sodium Chloride (Normal Saline) 80 mls @ 3 mls/sec IV ASDIRECTED [facility] Last Admin: 04/09/20 22:03 Dose: 3 mls/sec Documented by: VISHAL Iopamidol (Isovue-300 (61%)) 100 ml IV . DIRECTED [facility] Morphine Sulfate (Morphine) 2 mg IVPUSH Q2H PRN PRN Reason: Pain (severe 7-10) Nicotine (Habitrol) 21 mg TRDERM DAILY [facility] Ondansetron HCl (Zofran Odt) 4 mg PO Q6H PRN PRN Reason: Nausea able to take PO Ondansetron HCl (Zofran) 4 mg IV Q4H PRN PRN Reason: Nausea/Vomiting Assessment/Plan Comment:: ASSESSMENT AND PLAN CELLULITIS LEFT FACE SECONDARY TO DENTAL ABSCESS- Cornelio reports worsen dental pain and swelling over the past 3 days, he was seen in ER 2 days ago and at [facility] this morning. started on Augmentin x 2 days without improvement. He reports at home he was having fever of 102 even Tylenol and Motrin. His face and lip was more swollen and had painful swallowing and his neck was tender. In ER labs, CBC and CRP were kate vated, lactic acid normal, IV fluids and decision to admit to hospital for further care and evaluation CT scan obtained after admission shows no evidence of abscess but did show two small dental abscess were noted at site of tooth. T-max 101.8 p-90 rr 18 B/P 162/102 O2 sat 98% on admission. -IV fluids Normal Saline 125ml/hr., given Normal Saline 2 liters prior to start of maintenance fluids. -IV Clindamycin 900 mg every 8 hours -IV Levofloxacin 750 mg every 24 hours. -IV narcotic and po medication ordered -Blood cultures pending -am labs CBC, BMP, Lactic Acid MAINTENANCE ISSUES -DVT prophylaxis; Lovenox 40 mg subcut -GI prophylaxis; IV Protonix 40 mg daily -Schmitz catheter; not indicated -Nutrition; soft diet -Nicotine dependence; Nicotine patch. CODE STATUS-FULL CODE ADMISSION STATUS-this patient will be admitted to observation status, expect no more than a two night hospital stay for evaluation and management of problems as outlined above. DISPOSITION-anticipate discharge to home after the hospital stay. PRIMARY CARE PROVIDER-[facility] HOSPITALIST- Dr. Grewal - Mortality Measure Prognosis:: Good
[2020-04-10] MEDS: Clindamycin Phosphate 900 MG in Sodium Chloride 0.9% 100 ML IV SCH (04:41)
[2020-04-10 07:28] VITALS: BP 114/57; PULSE 72
[2020-04-10] MEDS ORDERED: Nicotine 21 MG/24 Hr Patch TRDERM SCH (09:00)
--- NOTE | 2020-04-10 09:41 | PCM.DCSUM1 ---
Discharge Summary - Hospital Course Brief History: Healthy 24-year-old male who presented with increasing pain and swelling involving the face after a recent diagnosis of a dental infection. He was admitted for IV antibiotics. Diagnosis: Stroke: No - Discharge Data Discharge Date: 04/10/20 Discharge Disposition: Home, Self-Care 01 Condition: Fair - Referral to Home Health Primary Care Physician: PCP None - Patient Summary/Data Hospital Course: Cornelio presented to the emergency room with increasing pain and swelling of his face as well as some pain with swallowing. He had recently been diagnosed with cellulitis as well as a dental abscess and started on Augmentin. Despite the antibiotics his condition was worsening. In the emergency room he was noted to have a fever and leukocytosis. He was admitted to the hospital for IV antibiotic therapy. Overnight following admission there were no acute issues. The morning after admission his swelling has improved a fair amount and his pain is down quite a bit as well. His temperature this morning is normal. His white count is now normal. He is interested in going home at this point and with the significant improvement in the pain and swelling I think he is safe for outpatient management. He reports to me that he has follow-up scheduled in 2 weeks and the plan is to pull 2 teeth at that time. I have not been able to verify this with his dentist as of yet but have placed a phone call to them. They believe he is safe enough for outpatient management at this point. He is going to be going home with combination therapy of clindamycin and levofloxacin. - Patient Instructions Diet: Regular Diet as Tolerated (soft foods) Activity: As Tolerated Showering/Bathing: May Shower Notify Provider of: Fever, Increased Pain Other/Special Instructions: 1. You were in the hospital for management of cellulitis involving the face that likely resulted from 2 small dental abscesses. Your condition has been improving with antibiotic therapy. I do recommend ongoing antibiotic therapy at home. First, you should stop taking the Augmentin. Instead you should take 2 antibiotics that were administered during the hospital stay. Please take clindamycin 3 times daily with food for 10 days as well as levofloxacin 750 mg at bedtime for 10 days. Please follow-up as scheduled with your dentist for dental extractions. You may return to clinic or emergency room sooner if your condition worsens between now and dental follow- up. You may use acetaminophen and ibuprofen for pain following recommended dosages. - Discharge Plan *PRESCRIPTION DRUG MONITORING PROGRAM REVIEWED*: Not Applicable *COPY OF PRESCRIPTION DRUG MONITORING REPORT IN PATIENT ADAM: Not Applicable Prescriptions/Med Rec: Clindamycin HCl 600 mg PO TID #60 capsule Levofloxacin 750 mg PO BEDTIME #10 tablet Home Medications: Home Meds Clindamycin HCl 600 mg PO TID #60 capsule 04/10/20 [Rx] Levofloxacin 750 mg PO BEDTIME #10 tablet 04/10/20 [Rx] Oxygen Therapy Mode: Room Air Patient Handouts: Cellulitis, Adult, Kzax-os-Cdha, Clindamycin capsules, Levofloxacin tablets Referrals: PCP,None [Primary Care Provider] - (f/u with your dentist as scheduled in two weeks ) - Discharge Summary/Plan Comment DC Time >30 min.: No - Patient Data Vitals - Most Recent: Last Vital Signs Temp 35.5 C L 04/10/20 07:25 Pulse 72 04/10/20 07:25 Resp 16 04/10/20 07:25 BP 114/57 L 04/10/20 07:25 Pulse Ox 96 04/10/20 07:25 Weight - Most Recent: 102.058 kg I&O - Last 24 hours: Intake & Output 04/09/20 04/10/20 04/10/20 22:59 06:59 14:59 Intake Total 1249 1175 Balance 1249 1175 Lab Results - Last 24 hrs: Laboratory Results - last 24 hr 04/09/20 04/09/20 04/09/20 Range/Units 20:45 20:45 20:45 WBC 15.8 H (4.5-11.0) K/uL RBC 5.72 (4.30-5.90) M/uL Hgb 16.9 H (12.0-15.0) g/dL Hct 51.1 (40.0-54.0) % MCV 89 (80-98) fL MCH 30 (27-31) pg MCHC 33 (32-36) % Plt Count 423 H (150-400) K/uL Neut % (Auto) 74 H (36-66) % Lymph % (Auto) 14 L (24-44) % [place] % (Auto) 11 H (2-6) % Eos % (Auto) 0 L (2-4) % Baso % (Auto) 0 (0-1) % Sodium 136 L (140-148) mmol/L Potassium 4.1 (3.6-5.2) mmol/L Chloride 98 L (100-108) mmol/L Carbon Dioxide 29 (21-32) mmol/L Anion Gap 13.1 (5.0-14.0) mmol/L BUN 7 (7-18) mg/dL Creatinine 1.1 (0.8-1.3) mg/dL Est Cr Clr Drug Dosing 106.92 mL/min Estimated GFR (MDRD) > 60 (>60) Glucose 112 H (74-106) mg/dL Lactic Acid 1.8 (0.4-2.0) mmol/L Calcium 9.5 (8.5-10.1) mg/dL Total Bilirubin 0.7 (0.2-1.0) mg/dL AST 30 (15-37) U/L ALT 50 (12-78) U/L Alkaline Phosphatase 73 (46-116) U/L C-Reactive Protein (0.0-0.3) mg/dL Total Protein 8.9 H (6.4-8.2) g/dL Albumin 4.1 (3.4-5.0) g/dL Globulin 4.8 H (2.3-3.5) g/dL Albumin/Globulin Ratio 0.9 L (1.2-2.2) 04/09/20 04/10/20 04/10/20 Range/Units 20:59 04:46 05:11 WBC 11.0 (4.5-11.0) K/uL RBC 5.25 (4.30-5.90) M/uL Hgb 15.7 H (12.0-15.0) g/dL Hct 46.8 (40.0-54.0) % MCV 89 (80-98) fL MCH 30 (27-31) pg MCHC 34 (32-36) % Plt Count 385 (150-400) K/uL Neut % (Auto) 90 H (36-66) % Lymph % (Auto) 8 L (24-44) % [place] % (Auto) 2 (2-6) % Eos % (Auto) 0 L (2-4) % Baso % (Auto) 0 (0-1) % Sodium 138 L (140-148) mmol/L Potassium 4.3 (3.6-5.2) mmol/L Chloride 103 (100-108) mmol/L Carbon Dioxide 24 (21-32) mmol/L Anion Gap 15.3 H (5.0-14.0) mmol/L BUN 10 (7-18) mg/dL Creatinine 0.9 (0.8-1.3) mg/dL Est Cr Clr Drug Dosing 130.68 mL/min Estimated GFR (MDRD) > 60 (>60) Glucose 158 H (74-106) mg/dL Lactic Acid (0.4-2.0) mmol/L Calcium 9.2 (8.5-10.1) mg/dL Total Bilirubin (0.2-1.0) mg/dL AST (15-37) U/L ALT (12-78) U/L Alkaline Phosphatase (46-116) U/L C-Reactive Protein 8.03 H (0.0-0.3) mg/dL Total Protein (6.4-8.2) g/dL Albumin (3.4-5.0) g/dL Globulin (2.3-3.5) g/dL Albumin/Globulin Ratio (1.2-2.2) Med Orders - Current: Current Medications Acetaminophen (Tylenol) 650 mg PO Q4H PRN PRN Reason: Pain (Mild 1-3)/fever Last Admin: 04/09/20 21:49 Dose: 325 mg Documented by: Hydrocodone Bitart/Acetaminophen ([place] 325-5 Mg) 1 tab PO Q4H PRN PRN Reason: Pain (moderate 4-6) Last Admin: 04/09/20 21:21 Dose: 1 tab Documented by: Diphenhydramine HCl (Benadryl) 25 mg PO BEDTIME PRN PRN Reason: Insomnia Docusate Sodium (Colace) 100 mg PO BID PRN PRN Reason: Constipation Enoxaparin Sodium (Lovenox) 40 mg SUBCUT DAILY@2100 [facility] Sodium Chloride (Normal Saline) 1,000 mls @ 125 mls/hr IV ASDIRECTED [facility] Last Admin: 04/09/20 22:49 Dose: 125 mls/hr Documented by: Levofloxacin/Dextrose 750 mg/ (Premix) 150 mls @ 100 mls/hr IV Q24H [facility] Last Admin: 04/09/20 22:48 Dose: 100 mls/hr Documented by: Clindamycin Phosphate 900 mg/ (Sodium Chloride) 106 mls @ 200 mls/hr IV Q8H [facility] Morphine Sulfate (Morphine) 2 mg IVPUSH Q2H PRN PRN Reason: Pain (severe 7-10) Nicotine (Habitrol) 21 mg TRDERM DAILY [facility] Last Admin: 04/10/20 09:34 Dose: Not Given Documented by: Ondansetron HCl (Zofran Odt) 4 mg PO Q6H PRN PRN Reason: Nausea able to take PO Ondansetron HCl (Zofran) 4 mg IV Q4H PRN PRN Reason: Nausea/Vomiting Discontinued Medications Enoxaparin Sodium (Lovenox) 40 mg SUBCUT DAILY [facility] Last Admin: 04/09/20 21:21 Dose: 40 mg Documented by: Sodium Chloride (Normal Saline) 1,000 mls @ 999 mls/hr IV ASDIRECTED [facility] Stop: 04/09/20 21:30 Last Admin: 04/09/20 20:37 Dose: 999 mls/hr Documented by: Clindamycin Phosphate 900 mg/ (Sodium Chloride) 106 mls @ 200 mls/hr IV Q8H [facility] Last Admin: 04/10/20 04:41 Dose: 200 mls/hr Documented by: Sodium Chloride (Normal Saline) 1,000 mls @ 999 mls/hr IV ASDIRECTED ONE Stop: 04/09/20 21:55 Last Admin: 04/09/20 21:21 Dose: 999 mls/hr Documented by: Sodium Chloride (Normal Saline) 80 mls @ 3 mls/sec IV ASDIRECTED [facility] Last Admin: 04/09/20 22:03 Dose: 3 mls/sec Documented by: Iopamidol (Isovue-300 (61%)) 100 ml IV . DIRECTED [facility] Methylprednisolone Sodium Succinate (Solu-Medrol) 125 mg IVPUSH ONETIME ONE Stop: 04/09/20 20:23 Last Admin: 04/09/20 20:38 Dose: 125 mg Documented by:
[2020-04-10] MEDS ORDERED: Clindamycin Phosphate 900 MG in Sodium Chloride 0.9% 100 ML IV SCH (14:00)
[2020-04-10] MEDS ORDERED: Enoxaparin 40 MG/0.4 ML Syringe SUBCUT SCH (21:00)
== END 2020-04-10 10:35 | disposition home or self-care (01) ==
LOC: JP.ED 19:22 → JP.MS 20:25
PROVIDERS: ADMIT Internal Medicine; ATTEND Internal Medicine
DX: K04.7 Periapical abscess without sinus (principal); L03.211 Cellulitis of face; L02.01 Cutaneous abscess of face; K02.9 Dental caries, unspecified; F17.210 Nicotine dependence, cigarettes, uncomplicated
CPT/HCPCS: 36415; 70491; 80048; 80053; 83605; 85025; 86140; 87040; 96374; 99284; A9270; J1650; J1956; J2930; J3490; J7030; J7050; 96365; 96366; 96367; 96372; 96375; G0378